=== PATIENT | male | born 2000 | race Caucasian/White ===

== ENCOUNTER 2020-10-21 13:08 | Emergency (ER) | payer OTHER ==
[~2020-10-21] VITALS: Ht 182.9 cm; Wt 114.3 kg
[2020-10-21 13:09] VITALS: BP 138/88
[2020-10-21] MEDS ORDERED: LIDOCAINE 1% MDV 20ML VIAL SC ONE (13:20)
[2020-10-21] MEDS ORDERED: BOOSTRIX/ADACEL VACCINE (DIPHTH/PERTUSS/ACELL/TETANUS) 0.5ML SYR IM ONE (13:30)
== END 2020-10-21 14:33 | disposition home or self-care (01) ==
LOC: M ED 13:08
DX: S61.411A Laceration without foreign body of right hand, initial encounter (principal); W26.0XXA Contact with knife, initial encounter; Y92.9 Unspecified place or not applicable; Y93.9 Activity, unspecified; Y99.9 Unspecified external cause status; Z23 Encounter for immunization

== ENCOUNTER 2022-04-28 20:31 | Emergency (ER) | payer OTHER ==
[~2022-04-28] VITALS: Ht 182.9 cm; Wt 106.4 kg
[2022-04-28 23:59] VITALS: BP 124/65
== END 2022-04-29 00:01 | disposition home or self-care (01) ==
LOC: M ED 20:31 → MERGE 20:31 → M ED 04-29 00:01
DX: S82.62XA Displaced fracture of lateral malleolus of left fibula, initial encounter for closed fracture (principal); W01.0XXA Fall on same level from slipping, tripping and stumbling without subsequent striking against object, initial encounter; Y92.9 Unspecified place or not applicable; Y93.9 Activity, unspecified; Y99.0 Civilian activity done for income or pay

== ENCOUNTER → 2022-05-01 | Outpatient (CLI) | payer OTHER | LOC: M RAD 06:47 → MERGE 07:30 | PROVIDERS: ATTEND Physician Assistant | DX: M25.572 Pain in left ankle and joints of left foot (principal) ==